=== PATIENT | female | born 1945 | race Caucasian/White ===

== ENCOUNTER → 2016-12-11 | Outpatient (CLI) | payer OTHER ==
[~2016-12-11] VITALS: Ht 160 cm; Wt 81.2 kg
[~2016-12-11] MED LIST: ANSAID100 MG PO; ASPIRIN325 PO; ASPIRIN81 M2 PO; ATIVAN1 MG PO; CLEOCIN HCL300 MG PO; CRESTOR20 MG PO; DYAZIDE 37.5-21 EACH PO; FLURBIPROFEN100 MG PO; GLUCOPHAGE500 MG PO; IMDUR 60 MG TAB60 M1 PO; JANUVIA100 MG PO; KRILL OIL500 MG PO; LOPRESSOR 50 MG50 M1 PO; LOPRESSOR25 PO; NITROSTAT0.4 MG SL; PLAVIX 75 MG TA75 M1 PO; PROTONIX40 M1 PO; RANEXA500 MG PO; SYNTHROID125 MCG PO; TRICOR145 MG PO
--- NOTE | ~2016-12-11 | S ---
[facility] [place] [address] SURGICAL PATH RPT PROCEDURE Name: VALENCIA WEBER Room #: REG [facility]#: [id number] Admission: 12/11/16 Date of : 49 Discharge: Report #: [id number] Path Case #: [id number] PATHOLOGY REPORT COLLECTION DATE: 12/11/2016 RECEIVED DATE: 12/11/2016 SUBMITTING PHYS: Dr. Eduard Mayo OTHER PHYS: SPECIMEN(S) RECEIVED: A.Distal esophagus rule out castrejon's B.Gastritis * * * * * * * * * * * * FINAL DIAGNOSIS: A. Esophagus, distal, biopsy: - Columnar junctional mucosa, chronically inflamed. - Negative for intestinal metaplasia. B. Stomach, biopsy: - Chronic inactive gastritis with reactive changes. - An H. pylori immunostain is negative (Block B1; appropriately reactive control). PATHOLOGIST: Bart Correa M.D. REPORT ELECTRONICALLY SIGNED BY: Bart Correa M.D. DATE/TIME: 12/12/2016 11:30 * * * * * * * * * * * * GROSS PATHOLOGY: A. Received in formalin labeled "Valencia Abigail, distal esophagus," is a segment of rodas soft tissue measuring 0.3 cm in maximum dimension. The specimen is submitted entirely in cassette A1. B. Received in formalin labeled "Valencia Abigail, gastritis," are 2 segments of rodas soft tissue measuring 0.5 x 0.2 x 0.3 cm in aggregate dimensions and ranging from 0.2 to 0.3 cm in maximum dimension. The specimen is submitted entirely in cassette B1. (TSD; 12/11/2016) CLINICAL HISTORY: Pre-OP DX: Abdominal pain Post-OP DX: Hx Castrejon's, dysphagia INITIAL CPT CODE(S): A; 66541 B; 29918, 89544 [facility] [address] [place] [address] SURGICAL PATH RPT PROCEDURE Name: CICILISAVALENCIA Room #: REG [facility].#: [id number] Admission: 12/11/16 Date of : 49 Discharge: Report #: [id number] Path Case #: [id number] Professional services performed by [facility] at [address], [place] [address] Technical services performed by [facility] at [address] [place] [address], [facility] [address] [address]. [facility] [address] [place] [address] PHONE: [phone] DIRECTOR: Charly Brooke M.D. * * * END OF REPORT * * *
--- NOTE | ~2016-12-11 | P ---
[facility] [place] [address] PROCEDURE REPORT Name: CARMINE WEBER Room #: REG [facility]#: [id number] Admission: 12/11/16 Attend Phys: Eduard Lopez Discharge: Date of : 49 Report #: [id number] THIS REPORT FOR: //name// CC: Eduard Medellin MD DATE OF SERVICE: 12/11/2016 PROCEDURE PERFORMED: Upper endoscopy with biopsies and esophageal dilation. HISTORY OF PRESENT ILLNESS: The patient is a 70-year-old female with a history of Varner's esophagus, previously with a low-grade dysplasia who underwent multiple ablations by myself. Last upper endoscopy showed no evidence of Varner's in 2014. She does take daily PPI therapy. She does report some intermittent dysphagia. Plan is for EGD. PROCEDURE: The risks and benefits of the procedure were explained to the patient, those risks including, but not limited to bleeding, perforation, and the risk of sedation. She understood these risks and gave informed consent. Sedation was given using propofol per anesthesia. Next, using a standard [employer] upper endoscope, the scope was placed in the patient's mouth and advanced under direct vision through the esophagus, stomach and into the second portion of the duodenum. The upper and mid esophagus was normal in appearance. In the distal esophagus, no evidence of esophagitis was noted. The GE junction essentially was normal, but there was one small area that extended approximately 2-3 mm above the GE junction, biopsies were obtained to rule out Varner's. No stricture or narrowing was noted. Overall, the gastric mucosa was normal in the fundus and body, and the gastric antrum near the pylorus, there was a mild gastritis, biopsies obtained to rule out H. pylori. The pylorus was normal and patent. The duodenal bulb, first and second portion were all normal. The scope was then brought back up into the patient's stomach and a Savary guidewire was inserted through the scope, leaving the guidewire in place as the scope was then withdrawn. Next, a 48-German Savary dilation of the esophagus was then performed without difficulty. The wire and dilator were removed. The scope was reintroduced into the patient's stomach. There was no evidence of mucosal tear after dilation. The scope was then withdrawn and the procedure terminated. The patient tolerated the procedure well. IMPRESSION: 1. Possible tiny area of Varner's esophagus, biopsies obtained. 2. Mild gastritis in the gastric antrum. 3. Status post esophageal dilation. RECOMMENDATIONS: 1. Await biopsy results. [address] [address] PROCEDURE REPORT Name: CARMINE WEBER Room #: REG [facility]#: [id number] Admission: 12/11/16 Attend Phys: Eduard Lopez Discharge: Date of : 49 Report #: [id number] 2. Observe the patient post dilation. 3. Continue PPI therapy. Thank you for allowing me to participate in her care. <ELECTRONICALLY SIGNED> By: Eduard Mayo MD 12/12/16 0906 [id number] 1135 Eduard Mayo MD /nt
== END | disposition home or self-care (01) ==
LOC: GI 06:54 → EDSTATUS 13:49
DX: K29.50 Unspecified chronic gastritis without bleeding (principal); K20.8 Other esophagitis; I10 Essential (primary) hypertension; I25.2 Old myocardial infarction; E11.9 Type 2 diabetes mellitus without complications; E03.9 Hypothyroidism, unspecified; E78.5 Hyperlipidemia, unspecified; K21.9 Gastro-esophageal reflux disease without esophagitis; Z90.49 Acquired absence of other specified parts of digestive tract; Z98.890 Other specified postprocedural states; Z95.5 Presence of coronary angioplasty implant and graft; Z87.19 Personal history of other diseases of the digestive system; Z96.651 Presence of right artificial knee joint; Z85.43 Personal history of malignant neoplasm of ovary; Z86.73 Personal history of transient ischemic attack (TIA), and cerebral infarction without residual deficits; Z90.710 Acquired absence of both cervix and uterus; Z79.899 Other long term (current) drug therapy; Z88.0 Allergy status to penicillin; Z79.82 Long term (current) use of aspirin; Z91.048 Other nonmedicinal substance allergy status
CPT/HCPCS: 62110; 62900

== ENCOUNTER 2017-03-16 15:30 | Inpatient (IN) | payer OTHER ==
[~2017-03-16] VITALS: Ht 160 cm; Wt 83.5 kg
--- NOTE | ~2017-03-16 | EKG ---
[address] [address] ELECTROCARDIOGRAM REPORT Name: CARMINE WEBER Room #: 431-P ADM IN M.R.#: [id number] Admission: 03/16/17 Attend Phys: Anand Payan MD Discharge: Date of : 49 Report #: [id number] THIS REPORT FOR: //name// [facility] ED Test Date: 2017-03-16 Test Time: 15:45:12 Pat Name: CARMINE WEBER Department: Room: [facility] Gender: F Coil Binder: JEAN PAUL : 1945 Requested By: Jorge Valencia Order Number: [id number] MD: Bacilio Ho Measurements Intervals [place] Rate: 82 P: 48 AL: 164 QRS: -9 QRSD: 83 T: 48 QT: 338 QTc: 395 Interpretive Statements Sinus rhythm Left ventricular hypertrophy Inferior infarct, old Compared to ECG 07/27/2015 10:39:56 No significant changes Electronically Signed On 03-17-2017 8:27:11 ANDROID ARCHITECT by Bacilio Ho [email or web address] <ELECTRONICALLY SIGNED> By: Bacilio Ho MD 03/17/17 0827 1545 1545 Bacilio Ho MD /AIDEE
--- NOTE | ~2017-03-16 | HC ---
[facility] [place] [address] CONSULTATION Name: CARMINE WEBER Room #: 431-P [facility] IN M.R.#: [id number] Admission: 03/16/17 Attend Phys: Anand Payan MD Discharge: Date of : 49 Report #: [id number] THIS REPORT FOR: //name// CC: Anand Medellin DATE OF SERVICE: 03/17/2017 TYPE OF REPORT: General surgery consultation. REASON FOR CONSULTATION: Right upper quadrant abdominal pain, nausea and vomiting. HISTORY OF PRESENT ILLNESS: This is a 71-year-old female patient who presented to [facility] with a 2-week history of fever, chills, nausea, vomiting and diarrhea as well as complaints of dysuria. Her temperature had been as high as 101 degrees Fahrenheit at home. As a result of her symptoms, she has not been eating well and has been unable to keep her medications down. I have been asked to see the patient for further evaluation and treatment. She does have a history of a laparoscopic cholecystectomy in July of 2015 for her chronic acalculous cholecystitis. The patient does state that she felt better after she underwent the procedure and her symptoms over the past couple of weeks are different than the symptoms she experienced with her gallbladder. PAST MEDICAL HISTORY: Significant for diabetes mellitus, hypertension, hyperlipidemia, hypothyroidism and coronary artery disease. The patient has also had a myocardial infarction x4, TIA and cardiac stents placed. She has gastroesophageal reflux disease and hypothyroidism. PAST SURGICAL HISTORY: Laparoscopic cholecystectomy in July of 2015 as well as right total knee arthroplasty in December of 2008. The patient has also undergone total hysterectomy for ovarian cancer in 1990. HOME MEDICATIONS: Include Plavix, Ativan, Glucophage, Synthroid, Crestor, Lopressor, Imdur, Ranexa, aspirin and Protonix. ALLERGIES: PENICILLIN and ADHESIVE TAPE. FAMILY HISTORY: Reviewed and noncontributory to this hospitalization. SOCIAL HISTORY: The patient denies use of tobacco, alcohol or illicit drugs. REVIEW OF SYSTEMS: As per history of present illness and in addition: GENERAL: The patient denies unintentional weight loss. Denies fever or chills. HEENT: Denies changes in taste, vision, hearing or smell. RESPIRATORY: Denies shortness of breath, COPD or asthma. [facility] [address] [place] [address] CONSULTATION Name: CARMINE WEBER Room #: 431-P [facility] IN M.R.#: [id number] Admission: 03/16/17 Attend Phys: Anand Payan MD Discharge: Date of : 49 Report #: [id number] CARDIOVASCULAR: Denies chest pain or palpitations. GASTROINTESTINAL: As per history of present illness. GENITOURINARY: Denies dysuria, urgency or increased urinary frequency. Her dysuria has dissipated since being started on antibiotics. NEUROLOGICAL: Denies headaches, numbness or tingling. Has a history of TIA. PSYCHIATRIC: Denies depression, anxiety or suicidal ideations. SKIN AND INTEGUMENTARY: Denies new skin lesions, rashes or moles. ENDOCRINE: Denies polydipsia, polyuria, heat or cold intolerance. HEMATOLOGIC: Denies easy bleeding, bruising or anemia. Takes Plavix. All other review of systems is negative. PHYSICAL EXAMINATION: VITAL SIGNS: Temperature 98.8, T-max 100.8 last night, blood pressure 119/64, pulse 80 and respirations 16. GENERAL: This is a 71-year-old female patient, in no acute distress. HEENT: Atraumatic and normocephalic with moist mucosal membranes. Oropharynx is clear. She has no scleral icterus. NECK: Supple. No appreciable lymphadenopathy. Trachea is midline. CHEST: Clear bilaterally. No crackles or wheezes. CARDIOVASCULAR: Regular rate and rhythm. ABDOMEN: Soft and nondistended with tenderness to palpation, greatest in the right upper quadrant. She has no rebound or guarding. No palpable masses. No appreciable hernias. GENITOURINARY: Normal external female genitalia. EXTREMITIES: No clubbing, cyanosis or edema. NEUROLOGICAL: Cranial nerves 2 through 12 grossly intact. PSYCHIATRIC: Normal mood and affect. SKIN AND INTEGUMENTARY: No acute inflammatory changes, rashes or lesions are present. LABORATORY DATA: CBC from this morning shows a white blood cell count of 10.2, hemoglobin 10.1, hematocrit 31.1 and platelets 190. Electrolytes showed a sodium of 133, potassium 3.9, chloride 100, CO2 23, BUN 22, creatinine 1.4 and glucose 134. Lactic acid last night was normal at 1.3. Urinalysis showed 2+ protein, trace ketones, 3+ blood, nitrite positivity and 1+ leukocyte esterase. RADIOLOGIC STUDIES: CT of the abdomen and pelvis showed a single prominent small bowel loop in the left upper quadrant measuring 3.3 cm in size. In comparison to previous CT scans, a small bowel loops were similarly sized. This is felt to represent physiologic dilatation of the proximal small bowel. The gallbladder is surgically absent. IMPRESSION AND PLAN: This is a 71-year-old female patient with the above listed comorbidities, who has had fever, chills, nausea, vomiting and diarrhea over the past 2 weeks. The differential diagnoses were discussed with the patient [address] [address] CONSULTATION Name: CARMINE WEBER Room #: 431-P [facility] IN .R.#: [id number] Admission: 03/16/17 Attend Phys: Anand Payan MD Discharge: Date of : 49 Report #: [id number] including gastroenteritis, adhesive small bowel disease, causing a small bowel dilatation or chronic dilatation. Sphincter of Oddi dysfunction was also included in the discussion. The patient is not felt to have a bowel obstruction as she has been passing diarrhea over the past couple of weeks. She would benefit from stool studies as well as a small bowel follow through to rule out a small-bowel obstruction. Her symptoms may also be associated with her urinary tract infection and as this is treated with antibiotics, she may have some improvement in her symptoms. She does not have an acute abdomen and surgical intervention is not warranted at this time. I will follow along with serial abdominal exams as well as labs and x-rays as necessary. I sincerely appreciate the opportunity to participate in the care of this patient and we will leave further recommendations and orders in the electronic medical record as appropriate. Thank you very much. <ELECTRONICALLY SIGNED> By: Corby Jay MD, FACS 03/18/17 1038 30 030 Corby Jay MD, FACS /nt
[2017-03-16 15:34] VITALS: BP 124/77
[2017-03-16 15:51] LABS: ABSOLUTE NEUTROPHILS 9.1 thou/uL (1.4-8.2); BASOPHILS 0.4 % (0.0-2.0); HEMATOCRIT 34.9 % (37.0-47.0); HEMOGLOBIN 11.3 gm/dL (12.0-15.0); LYMPHOCYTES 9.9 % (24.0-44.0); MCH 24.5 pg (26.0-34.0); MCHC 32.3 g/dL (28.0-37.0); MCV 75.6 fL (80.0-100.0); MONOCYTES 8.8 % (1.0-8.0); PLATELET COUNT 196 thou/uL (150-400); POLYS 80.9 % (36.0-66.0); RBC 4.61 mil/uL (4.20-5.00); RDW 17.2 % (10.5-14.5); WBC 11.3 thou/uL (4.0-11.0)
[2017-03-16 15:55] LABS: URINE BLOOD 3+ (Negative); URINE CLARITY CLOUDY; URINE COLOR YELLOW; URINE GLUCOSE-RANDOM* NEGATIVE (Negative); URINE KETONES TRACE (Negative); URINE LEUKOCYTES 1+ (Negative); URINE NITRITE POSITIVE (Negative); URINE PROTEIN (DIPSTICK) 2+ (Negative); URINE SPECIFIC GRAVITY >= 1.030 (1.005-1.035); URINE UROBILINOGEN 0.2 E.U./dl (0.2-1.0)
[2017-03-16 16:00] LABS: ANION GAP 14 mmol/L (7-16); BUN 26 mg/dL (7-18); CALCIUM 9.6 mg/dL (8.5-10.1); CHLORIDE 97 mmol/L (98-107); CO2 22 mmol/L (21-32); CREATININE 1.7 mg/dL (0.6-1.0); GLUCOSE 162 mg/dL (74-106); POTASSIUM 4.5 mmol/L (3.5-5.1); SODIUM 133 mmol/L (136-145)
[2017-03-16 16:02] LABS: ICTOTEST (BILI CONFIRMATORY) Negative (Negative); URINE BILIRUBIN NEGATIVE (Negative)
[2017-03-16] MEDS ORDERED: ATIVAN1 MG PO (16:02)
[2017-03-16 16:09] LABS: ALBUMIN 3.5 g/dL (3.4-5.0); DIRECT BILIRUBIN 0.2 mg/dL (<0.1-0.3); LIPASE 79 U/L (73-393); SGOT 24 U/L (15-37); SGPT 24 U/L (30-65); TOTAL BILIRUBIN 0.7 mg/dL (<0.1-1.0); TOTAL PROTEIN 7.8 g/dL (6.4-8.2); TROPONIN-I < 0.04 ng/mL (<0.06)
[2017-03-16 16:13] LABS: CASTS None Seen /LPF (None Seen); CRYSTALS None Seen /LPF (None Seen); SQUAMOUS 0-3 Few /LPF (0-3); URINE RBC 3-10 Few /HPF (0-2); URINE WBC >25 Many /HPF (0-5)
[2017-03-16 18:35] VITALS: BP 147/74
[2017-03-16 19:45] VITALS: BP 127/74
[2017-03-16 20:00] VITALS: BP 129/63
[2017-03-17 05:30] VITALS: BP 136/68
[2017-03-17 06:10] LABS: HEMATOCRIT 31.1 % (37.0-47.0); HEMOGLOBIN 10.1 gm/dL (12.0-15.0); MCH 24.7 pg (26.0-34.0); MCHC 32.4 g/dL (28.0-37.0); MCV 76.3 fL (80.0-100.0); RBC 4.08 mil/uL (4.20-5.00); RDW 17.1 % (10.5-14.5); WBC 10.2 thou/uL (4.0-11.0)
[2017-03-17 06:28] LABS: CREATININE 1.4 mg/dL (0.6-1.0); POTASSIUM 3.9 mmol/L (3.5-5.1)
[2017-03-17 07:45] VITALS: BP 119/64
[2017-03-17 08:46] LABS: % SATURATION 6 % (20-39); IRON 19 ug/dL (50-170); TIBC 340 ug/dL (250-450)
[2017-03-17 09:13] LABS: FOLIC ACID 7.1 ng/mL (8.6-58.9)
[2017-03-17 17:01] VITALS: BP 102/61
[2017-03-17 19:48] VITALS: BP 120/94
[2017-03-18 05:36] VITALS: BP 155/77
[2017-03-18 08:00] VITALS: BP 122/64
[2017-03-18 16:00] VITALS: BP 90/66
[2017-03-18 21:30] VITALS: BP 112/88
[2017-03-19 04:30] VITALS: BP 143/72; BP 149/84
[2017-03-19 06:32] LABS: ABSOLUTE NEUTROPHILS 3.5 thou/uL (1.4-8.2); BASOPHILS 0.5 % (0.0-2.0); EOSINOPHILS 2.5 % (0.0-3.0); HEMATOCRIT 27.7 % (37.0-47.0); LYMPHOCYTES 20.2 % (24.0-44.0); MCH 25.1 pg (26.0-34.0); MCHC 32.6 g/dL (28.0-37.0); MCV 76.8 fL (80.0-100.0); MONOCYTES 10.7 % (1.0-8.0); PLATELET COUNT 189 thou/uL (150-400); POLYS 66.1 % (36.0-66.0); RBC 3.61 mil/uL (4.20-5.00); WBC 5.4 thou/uL (4.0-11.0)
[2017-03-19 06:46] LABS: CALCIUM 8.5 mg/dL (8.5-10.1); CREATININE 1.1 mg/dL (0.6-1.0)
[2017-03-19 08:30] VITALS: BP 124/82
[2017-03-19] MEDS ORDERED: LEVAQUIN 500 M500 M2 PO (12:29)
[2017-03-19 15:07] VITALS: BP 124/82
== END 2017-03-19 15:27 | disposition home or self-care (01) | DRG 871 ==
LOC: ER 15:30 → 4E 19:51
PROVIDERS: Family Medicine; Internal Medicine; Nurse Practitioner
DX: A41.9 Sepsis, unspecified organism (principal); N17.0 Acute kidney failure with tubular necrosis; K56.600 Partial intestinal obstruction, unspecified as to cause; E87.1 Hypo-osmolality and hyponatremia; N12 Tubulo-interstitial nephritis, not specified as acute or chronic; E86.0 Dehydration; Z66 Do not resuscitate; E78.5 Hyperlipidemia, unspecified; E03.9 Hypothyroidism, unspecified; K21.9 Gastro-esophageal reflux disease without esophagitis; Z96.651 Presence of right artificial knee joint; I25.10 Atherosclerotic heart disease of native coronary artery without angina pectoris; I12.9 Hypertensive chronic kidney disease with stage 1 through stage 4 chronic kidney disease, or unspecified chronic kidney disease; E11.22 Type 2 diabetes mellitus with diabetic chronic kidney disease; N18.3 Chronic kidney disease, stage 3 (moderate); I25.2 Old myocardial infarction; Z91.09 Other allergy status, other than to drugs and biological substances; Z88.0 Allergy status to penicillin; Z86.73 Personal history of transient ischemic attack (TIA), and cerebral infarction without residual deficits; Z90.49 Acquired absence of other specified parts of digestive tract; Z90.710 Acquired absence of both cervix and uterus; Z95.5 Presence of coronary angioplasty implant and graft
CPT/HCPCS: 10084

== ENCOUNTER → 2019-12-19 | Outpatient (CLI) | payer OTHER ==
[~2019-12-19] MED LIST changes: +ATIVAN1 M1 PO; +LEVAQUIN 500 M500 M2 PO
== END ==
LOC: LAB 11:31
PROVIDERS: ATTEND Specialist
DX: Z01.812 Encounter for preprocedural laboratory examination (principal); Z20.828 Contact with and (suspected) exposure to other viral communicable diseases

== ENCOUNTER → 2019-12-24 | Outpatient (CLI) | payer OTHER ==
[~2019-12-24] VITALS: Ht 160 cm; Wt 81.6 kg
--- NOTE | 2019-12-29 13:56 | P ---
[facility] [place] [address] PROCEDURE REPORT Name: CARMINE WEBER Room #: REG [facility] KerlineRani#: [id number] Admission: 12/24/19 Attend Phys: Eduard Lopez Discharge: Date of : 49 Report #: [id number] THIS REPORT FOR: cc: Uriah Medellin MD, Rene P. MD McElhinney, Christian C. MD ~ CC: Eduard Medellin DATE OF SERVICE: 12/24/2019 PROCEDURE PERFORMED: Upper endoscopy with esophageal dilation. HISTORY OF PRESENT ILLNESS: The patient is a 74-year-old female with a history of Varner's esophagus, previously with low-grade dysplasia, who underwent multiple ablations by myself in the past. Her last upper endoscopy was in 12/2016; possible short segment of Varner's was noted. Biopsies were obtained. Biopsies were negative for Varner's esophagus. She remains on daily PPI therapy. She does report mild dysphagia at times. She is here for routine 3-year followup. DESCRIPTION OF PROCEDURE: The risks and benefits of the procedure were explained to the patient, those risks including but not limited to bleeding, perforation and the risk of sedation. She understood these risks and gave informed consent. Sedation was given using propofol per Anesthesia. Next, using a standard Olympus upper endoscope, the scope was placed in the patient's mouth and advanced under direct vision through the esophagus, stomach and into the second portion of the duodenum. The larynx was normal in appearance. The esophagus was normal throughout. The GE junction was normal. There was no evidence of Varner's esophagus. Overall, the gastric mucosa was normal. The pylorus was normal and patent. The duodenal bulb, first and second portion were all normal. The scope was then brought back up into the patient's stomach and a Savary guidewire was inserted through the scope, leaving the guidewire in place as the scope was then withdrawn. Next, a 51-Bulgarian Savary dilation of the esophagus was performed without difficulty. The wire and dilator removed. The scope was reintroduced into the patient's stomach. There was no evidence of mucosal tear after dilation. The scope was then withdrawn and the procedure terminated. The patient tolerated the procedure well. IMPRESSION: 1. No evidence of Varner's esophagus. 2. Otherwise, normal upper endoscopy, status post dilation. RECOMMENDATIONS: 1. Continue daily PPI therapy, long-term. [address] [address] PROCEDURE REPORT Name: CARMINE WEBER Room #: REG [facility]#: [id number] Admission: 12/24/19 Attend Phys: Eduard Lopez Discharge: Date of : 49 Report #: [id number] 2. Observe the patient post-dilation. 3. Repeat upper endoscopy in 3 years. Thank you for allowing me to participate in her care. <ELECTRONICALLY SIGNED> By: Eduard Mayo MD 12/29/19 1356 1147 1621 Eduard Mayo MD /nt
== END | disposition home or self-care (01) ==
LOC: GI 09:08
PROVIDERS: ATTEND Specialist
DX: R13.10 Dysphagia, unspecified (principal); I10 Essential (primary) hypertension; E78.5 Hyperlipidemia, unspecified; E11.9 Type 2 diabetes mellitus without complications; K21.9 Gastro-esophageal reflux disease without esophagitis; I25.2 Old myocardial infarction; E03.9 Hypothyroidism, unspecified; Z98.890 Other specified postprocedural states; Z79.899 Other long term (current) drug therapy; Z79.82 Long term (current) use of aspirin; Z86.73 Personal history of transient ischemic attack (TIA), and cerebral infarction without residual deficits; Z90.710 Acquired absence of both cervix and uterus; Z85.44 Personal history of malignant neoplasm of other female genital organs; Z90.49 Acquired absence of other specified parts of digestive tract; Z96.651 Presence of right artificial knee joint; Z88.0 Allergy status to penicillin; Z88.8 Allergy status to other drugs, medicaments and biological substances
CPT/HCPCS: 62110; 62900

== ENCOUNTER → 2020-08-11 | Outpatient (CLI) | payer OTHER | LOC: RAD 11:44 | PROVIDERS: ATTEND Family Medicine | DX: I51.7 Cardiomegaly (principal); J98.4 Other disorders of lung; M47.814 Spondylosis without myelopathy or radiculopathy, thoracic region; R06.00 Dyspnea, unspecified ==